=== PATIENT | male | born 1990 | race Caucasian/White ===

== ENCOUNTER 2021-06-13 14:35 | Emergency (ER) | payer MEDICAID ==
[~2021-06-13] VITALS: Ht 167.6 cm; Wt 96.0 kg
[2021-06-13] MEDS ORDERED: HYDROCODONE/ACETAMINOPHEN 5/325MG TABLET PO STA (15:52)
[2021-06-13] MEDS ORDERED: LIDOCAINE HCL/PF 1% 10 MG/ML 5ML VIAL INFIL ONE (17:45)
[2021-06-13] MEDS ORDERED: BACITRACIN ZINC OINT UDPKT TOP ONE ×2 (17:45)
[2021-06-13] MEDS ORDERED: TETANUS, DIPHTHERIA, PERTUSSIS VAC/PF 0.5ML (>10YR OLD) IM ONE (17:45)
[2021-06-13] MEDS ORDERED: CEPHALEXIN 250MG CAPSULE PO SCH (18:50)
[2021-06-13] MEDS ORDERED: HYDR-4001 MT (19:05)
[2021-06-13] MEDS ORDERED: CEPH500T PO (19:05)
[2021-06-13 19:19] VITALS: BP 128/77
== END 2021-06-13 19:21 | disposition home or self-care (01) ==
LOC: ER 14:35
DX: S62.634B Displaced fracture of distal phalanx of right ring finger, initial encounter for open fracture (principal); W20.8XXA Other cause of strike by thrown, projected or falling object, initial encounter; Y93.89 Activity, other specified; Y92.89 Other specified places as the place of occurrence of the external cause; Y99.0 Civilian activity done for income or pay
CPT/HCPCS: 12002; 73140; 90471; 90715; 99284; A4217; J3490; Z7610